=== PATIENT | female | born 1965 | race Caucasian/White ===

== ENCOUNTER → 2016-06-23 | Outpatient (CLI) | payer OTHER ==
--- NOTE | 2016-06-23 11:01 | KCIC ---
Bilateral digital screening mammograms with CAD: HISTORY Routine screening. COMPARISON Comparison is made to previous study dated 01/29/2014. FINDINGS Breast density category B. The skin and nipples show no abnormalities. No abnormal lymph nodes are seen in the axilla. The breast parenchyma shows scattered fibroglandular density. There appears to be a small nodular parenchymal density posterior laterally in the left breast on CC view measuring approximately 1.6 centimeters in greatest dimension. This probably lies in the upper outer quadrant and further evaluation with additional coned compression views in CC and lateral projections and ultrasound is recommended. There are no other new dominant masses, suspicious calcifications or architectural distortions. IMPRESSION New 1.6 centimeter nodular parenchymal density posterior laterally in the left breast seen on CC view but probably lie in the upper outer quadrant. Recommend further evaluation with coned compression views and ultrasound. This study was interpreted with the benefit of Computerized Aided Detection (CAD). Mammography is not 100% sensitive in detecting breast cancer. Therefore, a self breast exam and a clinical breast exam are very important. A negative mammogram does not negate a clinically suspicious finding and should not result in a delay in biopsying a clinically suspicious abnormality. BI-RADS category 0: Incomplete. Further evaluation with additional views and ultrasound is recommended. This patient's information has been entered into a reminder system for the patient to be notified with the results of this examination and a target date for her next mammograms. Electronically signed by: Mercy Gracia MD (Jun 23, 2016 10:59:35)
== END | disposition home or self-care (01) ==
LOC: KCIC MAMMO 09:07
PROVIDERS: ATTEND Family Medicine
DX: Z12.31 Encounter for screening mammogram for malignant neoplasm of breast (principal)
CPT/HCPCS: G0202; 77067

== ENCOUNTER → 2016-07-04 | Outpatient (CLI) | payer OTHER ==
--- NOTE | 2016-07-04 15:37 | RAD ---
DATE: 07/04/2016 EXAM: DIGITAL DIAGNOSTIC LT HISTORY: 51-year-old female presents for evaluation of focal asymmetry within the left breast demonstrated on a screening mammogram dated 06/23/2016. COMPARISON: 06/23/2016 TECHNIQUE: Full field digital craniocaudal, rolled craniocaudal, and spot compression views of the left breast are obtained. This study was interpreted with the benefit of Computerized Aided Detection (CAD). FINDINGS: Breast parenchymal composition: Level B. The breast parenchyma shows scattered fibroglandular densities. There is no persistent finding of concern within the left breast with additional mammographic views. The recently demonstrated focal asymmetry within the lateral left breast likely represented summation artifact. IMPRESSION: No persistent suspicious finding within the left breast. BI-RADS CATEGORY: 2 BENIGN FINDING RECOMMENDED FOLLOW-UP: 12M 12 MONTH FOLLOW-UP PQRS compliance statement: Patient information was entered into a reminder system with a target due date in one year for the next mammogram. Mammography is a sensitive method for finding small breast cancers, but it does not detect them all and is not a substitute for careful clinical examination. A negative mammogram does not negate a clinically suspicious finding and should not result in delay in biopsying a clinically suspicious abnormality. "Our facility is accredited by the [employer] Mamm[employer]."
== END | disposition home or self-care (01) ==
LOC: KCIC MAMMO 14:37
PROVIDERS: ATTEND Family Medicine
DX: R92.8 Other abnormal and inconclusive findings on diagnostic imaging of breast (principal); N63 Unspecified lump in breast
CPT/HCPCS: G0206; 77065

== ENCOUNTER → 2017-10-15 | Outpatient (CLI) | payer BC | END | disposition home or self-care (01) | LOC: KCIC MAMMO 16:32 | DX: Z12.31 Encounter for screening mammogram for malignant neoplasm of breast (principal) | CPT/HCPCS: 77067 ==

== ENCOUNTER → 2019-12-19 | Outpatient (CLI) | payer BC ==
--- NOTE | 2019-12-22 11:14 | KCIC ---
EXAM: Bilateral digital screening mammogram with tomosynthesis. HISTORY: 54-year-old female presents for screening mammography. TECHNIQUE: Full-field digital craniocaudal and mediolateral oblique 2D and 3D tomosynthesis images of both breasts are obtained for evaluation. Computer aided detection with [employer] software version 9.3 was applied. COMPARISON: 10/15/2017 and 06/23/2016 BREAST PARENCHYMAL DENSITY: Level B - Scattered fibroglandular densities. FINDINGS: There is a small nodular density within the 6:00 position of the left breast at mid depth which may be more conspicuous on the current exam due to differences in technique. There is stable nodularity within the lateral subareolar aspect of the right breast compared to prior studies, allowing for differences in technique. There is no architectural distortion or suspicious calcification within either breast. IMPRESSION: BI-RADS Category 0: Incomplete. Additional imaging needed. RECOMMENDATION: Further evaluation with a breast sonogram it is recommended to assess a small nodular density within the 6:00 position of the left breast at mid depth. If your mammogram demonstrates that you have dense breast tissue, which could hide abnormalities, and if you have other risk factors for breast cancer that have been identified, you might benefit from supplemental screening tests that may be suggested by your ordering physician. Dense breast tissue, in and of itself, is a relatively common condition. This information is not provided to cause undue concern, but rather to raise your awareness and to promote discussion with your physician regarding the presence of other risk factors, in addition to dense breast tissue. A report of your mammography results will be sent to you and your physician. You should contact your physician if you have any questions or concerns regarding this report. Mammography is a sensitive method for finding small breast cancers, but it does not detect them all and is not a substitute for careful clinical examination. A negative mammogram does not negate a clinically suspicious finding and should not result in delay in biopsying a clinically suspicious abnormality. PQRS compliance statement - Patient information was entered into a reminder system with a target due date for the next mammogram. "Our facility is accredited by the [employer] Mammography [employer]." Electronically signed by: Beulah Mehta MD (12/22/2019 11:11 AM) [email or web address]
== END ==
LOC: KCIC MAMMO 15:40
PROVIDERS: ATTEND Family Medicine
DX: Z12.31 Encounter for screening mammogram for malignant neoplasm of breast (principal)
CPT/HCPCS: 77063; 77067

== ENCOUNTER → 2020-01-02 | Outpatient (CLI) | payer BC ==
--- NOTE | 2020-01-02 15:55 | RAD ---
Examination: BREAST LEFT History: ABNORMAL MAMMOGRAM CALLBACK Comparison/Correlation: 10/15/2017 and 12/19/2019 screen mammogram Findings: Left breast 6:00 region has a 0.56 x 0.53 x 0.24 cm tall well-circumscribed cystic structure with internal echoes within it. These internal echoes may alternatively be artifactual. This finding is 6 cm from the nipple. No flow evident within it. Impression: BI-RADS Category 3-probably benign. Six-month follow-up with ultrasound is recommended to assess stability. Mammography may be needed at that time. Electronically signed by: Josesito Britt MD (01/02/2020 3:52 PM) [email or web address]
== END | disposition home or self-care (01) ==
LOC: US 13:48
PROVIDERS: ATTEND Family Medicine
DX: R92.8 Other abnormal and inconclusive findings on diagnostic imaging of breast (principal); N60.02 Solitary cyst of left breast
CPT/HCPCS: 76641

== ENCOUNTER → 2020-07-21 | Outpatient (CLI) | payer BC ==
--- NOTE | 2020-07-21 11:56 | KCIC ---
Left breast ultrasound: Reason for examination: Follow-up nodules. Comparison is made to previous study dated 01/02/2020. Left breast ultrasound including the axillary regions of the left breast was performed. At the 6:00 position 6 cm from the nipple, there continues to be a small 4.8 mm hypoechoic fibrocysti c type lesion lying in parallel orientation and show no abnormal vascularity. This has shown interval decrease in size. No new cystic or solid lesions are seen and no abnormal appearing lymph nodes are seen in the axilla. IMPRESSION: Small nodule at the 6:00 position with interval decrease in size now measuring 4.8 mm in greatest dim ension consistent with improving fibrocystic change. Recommend routine mammographic follow-up. BI-RADS Category 2: Benign. "Our facility is accredited by the [employer] Mammography [employer]." This patient's information has been entered into a reminder system for the patient to be notified wit h the results of her examination and a target date for the next mammogram. Electronically signed by: Tali Gracia MD (07/21/2020 11:53 AM) [email or web address]
== END ==
LOC: KCIC MAMMO 09:49
PROVIDERS: ATTEND Family Medicine
DX: N63.23 Unspecified lump in the left breast, lower outer quadrant (principal)
CPT/HCPCS: 76641

== ENCOUNTER → 2021-02-04 | Outpatient (CLI) | payer BC ==
--- NOTE | 2021-02-04 11:08 | KCIC ---
Bilateral digital screening mammograms with 3-D tomosynthesis: Reason for examination: Routine screening. Comparison is made to previous studies dated back to 01/29/2014. Bilateral mammograms in CC and oblique projections were obtained with 2-D imaging and 3-D tomosynthes is imaging on a Siemens Inspiration unit and reviewed on the workstation. Interpretation was made wit h the benefit of CAD. The skin and nipples show no abnormalities. No abnormal axillary lymph nodes are seen. The breast par enchyma shows scattered fatty and fibroglandular density. (Breast density: Category B.) There continu es to be small nodular parenchymal density anterior laterally in the right breast seen best on CC vie w which is stable. There are no new dominant masses, suspicious calcifications or architectural disto rtion. Impression: No evidence of malignancy. Recommend routine screening. BI-RAD Category 2: Benign. "Our facility is accredited by the [employer] Mammography [employer]." This patient's information has been entered into a reminder system for the patient to be notified wit h the results of her examination and a target date for the next mammogram. Electronically signed by: Tali Gracia MD (02/04/2021 11:06 AM) [email or web address]
== END ==
LOC: KCIC MAMMO 07:54
PROVIDERS: ATTEND Family Medicine
DX: Z12.31 Encounter for screening mammogram for malignant neoplasm of breast (principal)
CPT/HCPCS: 77063; 77067